=== PATIENT | female | born 1960 | race Hispanic/Latino ===

== ENCOUNTER 2019-04-07 07:26 | Emergency (ER) | payer MEDICAID ==
[~2019-04-07] VITALS: Ht 154.9 cm; Wt 68.0 kg
[2019-04-07] MEDS ORDERED: ALEVE220 M1 PO (07:41)
[2019-04-07] MEDS ORDERED: NORCO 5-325 TA1 EACH PO (08:36)
--- NOTE | 2019-04-07 22:54 | EKG ---
[facility] [address] [facility] [place] [address] Signed Normal sinus rhythm Normal ECG No previous ECGs available Confirmed by NALLELY PURI MD ([id number] on 04/07/2019 10:53:56 PM Electronically Signed By: NALLELY PURI MD 04/07/19 2254 PATIENT NAME: PARISA CABRERA Electrocardiogram DATE OF : 60 PHYSICIAN: NALLELY PURI MD REPORT #: [id number] REPORT IS CONFIDENTIAL AND NOT TO BE RELEASED WITHOUT AUTHORIZATION
== END 2019-04-07 09:02 | disposition home or self-care (01) ==
LOC: ED 07:26
DX: R07.89 Other chest pain (principal); R09.1 Pleurisy; Z79.899 Other long term (current) drug therapy
CPT/HCPCS: 71045; 80053; 84484; 85025; 85379; 93005; 93010; 96374; 96375; 99285-25; 99406; J1885; J2270

== ENCOUNTER 2025-01-08 09:56 | Emergency (ER) | payer MEDICARE, MEDICAID ==
[~2025-01-08] VITALS: Ht 154.9 cm; Wt 70.8 kg
[~2025-01-08 09:56] MED LIST: ALEVE220 M1 PO; NORCO 5-325 TA1 EACH PO
[2025-01-08] MEDS ORDERED: ALBUTEROL SULFATE 8 GM HOME.PACK INH ONE (10:30)
[2025-01-08] MEDS ORDERED: VENTOLIN HFA18 GM INH (10:43)
[2025-01-08 10:59] LABS: INFLUENZA B NAA NEGATIVE (NEGATIVE); RESPIRATORY SYNCYTIAL VIR NAA NEGATIVE (NEGATIVE)
[2025-01-08 11:25] VITALS: BP 168/74
== END 2025-01-08 11:23 | disposition home or self-care (01) ==
LOC: ED 09:56
PROVIDERS: Emergency Medicine
DX: J20.8 Acute bronchitis due to other specified organisms (principal); F17.200 Nicotine dependence, unspecified, uncomplicated; Z11.52 Encounter for screening for COVID-19
CPT/HCPCS: 87502; 94640; 94664; 99283; U0002